=== PATIENT | male | born 1960 | race Caucasian/White ===

== ENCOUNTER 2025-09-22 07:17 | Day surgery (SDC) | payer MEDICARE ==
[2025-09-21 12:10] LABS: MEAN PLATELET VOLUME 8.3 FL (7.4-10.4); RED CELL DISTRIBUTION WIDTH 14.0 % (11.5-14.5)
[2025-09-21 12:18] LABS: CREATININE 0.86 MG/DL (0.60-1.10); TOTAL CARBON DIOXIDE 30.2 MMOL/L (24-32); eGFR 89 ML/MIN
[2025-09-21 12:21] LABS: APTT 27 SECONDS (22-32); INR 1.1 INR
[~2025-09-22] VITALS: Ht 175.3 cm; Wt 100.4 kg
[2025-09-22] VITALS (22 sets, daily range): BP systolic 104–152; BP diastolic 55–95; PULSE 65–92; RESP 12–19; TEMP 98.1; O2SAT 96–100
[2025-09-22] MEDS ORDERED: verapamil 2.5 mg/ml inj IV ONE (07:37)
[2025-09-22] MEDS ORDERED: midazolam 1 mg/ML 2ml injection ONE ×2 (07:37→09:10)
[2025-09-22] MEDS ORDERED: LIDOcaine 1% (10mg/ml) 2ml vial ONE (07:37)
[2025-09-22] MEDS ORDERED: fentaNYL/PF 50MCG/1 ML 2ML syringe ONE (07:38)
[2025-09-22] MEDS ORDERED: nitroGLYCERIN 500mcg/5mL D5W 5 ML IV ONE ×3 (07:38→09:37)
[2025-09-22] MEDS ORDERED: iohexol 350 MG/ML 50ML vial IV ONE (07:38)
[2025-09-22] MEDS ORDERED: heparin 1,000unit/ml 10ml vial 10 ML ONE (07:38)
--- NOTE | 2025-09-22 07:49 | ELECTROCARDIOGRAPH REPORT ---
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 LINDY Mya Measurements Intervals [place] Rate: 77 P: 56 OR: 165 QRS: 81 QRSD: 121 T: 29 QT: 389 QTc: 441 Interpretive Statements Sinus rhythm Nonspecific intraventricular conduction delay Inferior infarct, old Abnormal lateral Q waves Electronically Signed On 09-22-2025 17:06:[address] LINDY May Please click the below link to view image of tracing.
[2025-09-22] MEDS ORDERED: CARV3.12 PO (07:56)
[2025-09-22] MEDS ORDERED: GLIM2TAB6 PO (07:56)
[2025-09-22] MEDS ORDERED: LOSA100T58 PO (07:56)
[2025-09-22] MEDS ORDERED: ASPI-1397 PO (07:56)
[2025-09-22] MEDS ORDERED: DABI75CA8 PO (07:56)
[2025-09-22] MEDS ORDERED: ATOR-429 PO ×2 (07:56→11:04)
[2025-09-22] MEDS ORDERED: LIDOcaine 1% 30ml preserv. free vial ONE (08:13)
[2025-09-22] MEDS ORDERED: metoprolol tartrate 1mg/ml inj IV ONE (08:33)
[2025-09-22] MEDS ORDERED: heparin 25,000 UNIT/250ml bag 250 ML IV ONE (09:08)
[2025-09-22] MEDS ORDERED: heparin 1,000 UNITS/NS 500ml 500 ML ONE (09:25)
[2025-09-22] MEDS: sodium bicarbonate 1meq/ml inj 150 ML in dextrose 5%-water 1,000 ML IV SCH (10:42)
[2025-09-22] MEDS: hydrALAZINE 20mg/ml inj. IV SCH (10:50)
[2025-09-22] MEDS ORDERED: HYDROcodone/acetaminophen 10/325mg tab PO PRN (10:50)
[2025-09-22] MEDS ORDERED: HYDROcodone/acetaminophen 5mg/325mg tablet PO PRN (10:50)
--- NOTE | 2025-09-22 10:51 | ELECTROCARDIOGRAPH REPORT ---
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 LINDY May Measurements Intervals [place] Rate: 69 P: 54 CA: 181 QRS: 80 QRSD: 117 T: 84 QT: 410 QTc: 440 Interpretive Statements Sinus rhythm Nonspecific intraventricular conduction delay Inferior infarct, old Electronically Signed On 09-22-2025 17:07:[address] LINDY May Please click the below link to view image of tracing.
[2025-09-22] MEDS ORDERED: ASPI-611 PO (11:04)
[2025-09-22] MEDS ORDERED: TICA90TA2 PO (11:04)
[2025-09-22] MEDS ORDERED: EZET10TA6 PO (11:04)
[2025-09-22] MEDS ORDERED: sodium bicarbonate 1meq/ml inj 150 ML in dextrose 5%-water 1,000 ML IV ONE (12:12)
[2025-09-22] MEDS ORDERED: LIDOcaine 1% W/epiNEPHrine 1:100,000 20ml vial ONE (12:39)
[2025-09-22] MEDS: morphine 4 MG/ML inj SYRINge IV PRN (12:42)
--- NOTE | 2025-09-23 04:27 | CARDIOLOGY REPORT ---
DATE OF SERVICE: 09/22/2025 DICTATING PHYSICIAN: LINDY Kowalski MD CARDIAC CATHETERIZATION GENDER: Male AGE: 65 years. HEIGHT: 175 cm WEIGHT: 100.2 kg BODY SURFACE AREA: 2.15 m2 INDICATION: The patient is a 65-year-old Monegasque male with history of diabetes, hypertension, hyperlipidemia, CAD, and CABG with an abnormal stress test. History of CAD goes back to 2013 when he had CABG x 6 at [facility] by Dr. Caldera. At that time, he got DOTY to LAD, SVG to diagonal, sequential SVG to OM1 and OM2, and sequential SVG to two branches of the RCA. The patient had a CT angiography at [facility] evaluated by Dr. Alphonso Alegre and found only 4 grafts were visible out of 6 and there was diffuse disease. At that time, they had preferred medical therapy. The patient had a myocardial perfusion scan, which shows fixed anterior defect and an inferolateral defect. After discussing risks, benefits, and alternative options between him and his daughter, who is a hospitalist, they did decide to proceed with coronary angiography. Risks, benefits, and alternative options were discussed. Informed consent was obtained. PROCEDURE TECHNIQUE: The patient underwent left heart cath via right femoral approach, 6-Ukrainian right femoral arterial sheath. Post procedure access site hemostasis secured with the sheath, was sutured to the groin. The patient tolerated the procedure well. Complications none. PROCEDURES DONE: * Ultrasound-guided right femoral artery visualization and access. * Left heart catheterization. * LVD. * Coronary cineangiography. * DOTY injection. * Graft cineangiography. * PTCA stenting of DOTY-LAD 80% narrowing through DOTY. * Conscious sedation of 105 minutes. COMPLICATIONS: None. SURGEON: LINDY Kowalski MD, [facility] FINDINGS: HEMODYNAMICS: Aortic systolic 137, diastolic 68, mean 102 mmHg, LVEDP of 19 mmHg. There is no significant gradient across the aortic valve. LEFT VENTRICULOGRAM: Left ventricular systolic ejection fraction is about 60-65%. CORONARY CINEANGIOGRAPHY: Left main coronary artery is a medium caliber ____ right femoral approach and left main is only about 2.25-mm caliber vessel. LAD is 100% occluded after a septal life enrichment assistant. Circumflex artery is diffusely diseased and circumflex arteries gives rise to all the proximal obtuse marginal branches are occluded. Two distal OMs are visible. Both of the entire distal circumflex is diffusely diseased. Distal two circumflex OMs have 80-90% narrowing. Right coronary artery is a medium caliber dominant vessel arising at right aortic sinus and courses through the right AV groove and ends at the posterior crux by dividing into PDA and posterolateral branches. The entire mid-distal RCA is diffusely diseased. It is 2 mm in diameter. There are areas of 40% narrowing in the mid and distal areas. Grafts, six out of six grafts are patent. SVG to diagonal is patent. Normal distal anastomosis, but diagonal itself is less than 2 mm in diameter. RSVG to PDA is patent and it is supposed to be a sequential graft and it appears to be anastomosed to the two parallel PDA branches and the first one is less than 1 mm in diameter and the second one is 1.5 mm in diameter. DOTY to LAD is patent, engaged with the DOTY catheter better shows just distal to the anastomosis, 80% narrowing. Otherwise, the LAD is somewhat moderately diseased with multiple areas of 40% narrowing. It is about 2 mm in diameter. Distally, it becomes very small. SVG to OM1 and OM2 to engage with the DOTY catheter. OM1 appears to be very small. OM2 has about 40% narrowing at the anastomosis. PTCA STENTING OF THE LAD: An 80% narrowing through DOTY. After adequate heparinization, PTCA stenting was carried out. Short DOTY guide gave good support. Lesion was crossed with PT2 moderate wire. Lesion angioplasty with 2.0 x 12 mm balloon at 8 followed by a 10 atmosphere pressure. Lesion was stented with 2/18 Resolute Chago stent and then the proximal three-fourths of the stent was post-dilated with a 2.25 NC balloon at 14 atmospheres MARIA ALEJANDRA 3 flow. The patient tolerated the procedure with no complications. IMPRESSION: A 65-year-old [place] male with LVEF 60-65%. LVEDP of 19 mmHg with no gradient across the aortic valve. Left main is relatively small about 2.5 mm in diameter. LAD, 100% occluded after the septal life enrichment assistant branch. Circumflex distally diffusely diseased with both distal OMs with 80% narrowing. RCA dominant vessel, diffusely disease, 2 mm in diameter, areas of 40% narrowing. The 6/6 grafts were patent. DOTY to LAD patent and just beyond the distal anastomosis has 80% narrowing, which was successfully angioplastied and stented with a 2/18 Resolute Chago stent post-dilated to a 2.25-mm NC balloon. SVG to diagonal patent. Sequential SVG to OM1 and OM2 patent. Om one is very small less than 1.5 mm Sequential SVG to two branches of the RCA patent. 1st branche also less than 1.5 mm. However, the patient [place] and has diffuse disease, relatively small vessels. The patient was told to aggressively continue his risk factor modification, namely low fat, low cholesterol diet, maintain ideal body weight, keeping LDL less than 50 mg%, hemoglobin A1c less than 7%, systolic blood pressure less than 130 mmHg, and losing another 15-20 pounds in the next one year. The patient was already on a maximum dose of atorvastatin. Zetia 10 mg was added. LINDY Kowalski MD TID: [id number] RECEIPT: [id number] BC/DIV/CAITLIN cc: Sanya Bullock MD [facility]
== END 2025-09-22 19:30 | disposition home or self-care (01) ==
LOC: SSTAY O 07:17
PROVIDERS: ATTEND Internal Medicine Cardiovascular Disease
DX: I25.10 Atherosclerotic heart disease of native coronary artery without angina pectoris (principal); I25.82 Chronic total occlusion of coronary artery; I45.4 Nonspecific intraventricular block; E11.9 Type 2 diabetes mellitus without complications; E78.5 Hyperlipidemia, unspecified; I10 Essential (primary) hypertension; Z79.01 Long term (current) use of anticoagulants; Z95.1 Presence of aortocoronary bypass graft
CPT/HCPCS: 36415; 80048; 82948; 85025; 85347; 85610; 85730; 93005; 93459; 99152; 99153; A6258; A6402; C1725; C1751; C1758; C1769; C1874; C1894; C9600; J0360; J1200; J1644; J2003; J2250; J2270; J3010; J3490; J7030; J7040; J7070; Q9967; Z7610; 76937; A6449